=== PATIENT | female | born 1970 | race African-American/Black ===

== ENCOUNTER 2016-08-28 17:30 | Emergency (ER) | payer MEDICAID ==
[2016-08-28] MEDS ORDERED: PREDNISONE 20 MG TABLET PO ONE (20:23)
[2016-08-28] MEDS ORDERED: HYDROCODONE/ACETAMINOPHEN 5-325 MG TABLET PO ONE (20:23)
[2016-08-28] MEDS ORDERED: CYCLOBENZAPRINE HCL 10 MG TABLET PO ONE (20:23)
--- NOTE | 2016-08-28 20:26 | ER Document Report ---
ED General - General Chief Complaint: Groin Pain Stated Complaint: ABDOMINAL PAIN Mode of Arrival: Ambulatory Information source: Patient Notes: 45-year-old female presents with complaints of left groin pain and left shoulder pain. Patient notes that the groin pain has been ongoing now for 3 months, the shoulder pain has been ongoing for a month, patient notes that at her job she has to do heavy lifting all day long and has to be on her feet for 8 hours straight. Patient notes the pain resolves by nighttime worsens in the morning when she wakes up she feels very stiff. Patient denies any chest pain shortness breath difficulty breathing notes tingling sensation down the arm from overuse TRAVEL OUTSIDE OF THE [place] IN LAST 30 DAYS: No - HPI Onset: Other Onset/Duration: Persistent, Waxing and waning Quality of pain: Achy Severity: Mild Pain Level: 1 Associated symptoms: Body/muscle aches Exacerbated by: Movement Relieved by: Denies Similar symptoms previously: Yes Recently seen / treated by doctor: No - Related Data Allergies/Adverse Reactions: No Known Allergies Allergy (Verified 08/28/16 20:15) Past Medical History - Social History Smoking Status: Never Smoker Cigarette use (# per day): No Chew tobacco use (# tins/day): No Smoking Education Provided: No Frequency of alcohol use: None Drug Abuse: None Family History: Reviewed & Not Pertinent Patient has suicidal ideation: No Patient has homicidal ideation: No Renal/ Medical History: Denies: Hx Peritoneal Dialysis Past Surgical History: Reports: Hx Cholecystectomy - Immunizations Hx Diphtheria, Pertussis, Tetanus Vaccination: No Review of Systems - Review of Systems Notes: REVIEW OF SYSTEMS: CONSTITUTIONAL : Denies fever, chills, or sweats. Denies recent illness. EENT: Denies eye, ear, throat, or mouth pain or symptoms. Denies nasal or sinus congestion or discharge. Denies throat, tongue, or mouth swelling or difficulty swallowing. CARDIOVASCULAR: Denies chest pain. Denies palpitations or racing or irregular heart beat. Denies ankle edema. RESPIRATORY: Denies cough, cold, or chest congestion. Denies shortness of breath, difficulty breathing, or wheezing. GASTROINTESTINAL: Denies abdominal pain or distention. Denies nausea, vomiting , or diarrhea. Denies blood in vomitus, stools, or per rectum. Denies black, tarry stools. Denies constipation. GENITOURINARY: Denies difficulty urinating, painful urination, burning, frequency, blood in urine, or discharge. FEMALE GENITOURINARY: Denies vaginal bleeding, heavy or abnormal periods, irregular periods. Denies vaginal discharge or odor. MUSCULOSKELETAL: Admits to left inguinal pain left shoulder pain SKIN: Denies rash, lesions or sores. HEMATOLOGIC : Denies easy bruising or bleeding. LYMPHATIC: Denies swollen, enlarged glands. NEUROLOGICAL: Denies confusion or altered mental status. Denies passing out or loss of consciousness. Denies dizziness or lightheadedness. Denies headache. Denies weakness or paralysis or loss of use of either side. Denies problems with gait or speech. Denies sensory loss, numbness, or tingling. Denies seizures. PSYCHIATRIC: Denies anxiety or stress. Denies depression, suicidal ideation, or homicidal ideation. ALL OTHER SYSTEMS REVIEWED AND NEGATIVE. Dictation was performed using [employer] voice recognition software PHYSICAL EXAMINATION: GENERAL: Well-appearing, well-nourished and in no acute distress. HEAD: Atraumatic, normocephalic. EYES: Pupils equal round and reactive to light, extraocular movements intact, conjunctiva are normal. ENT: Nares patent, oropharynx clear without exudates. Moist mucous membranes. NECK: Normal range of motion, supple without lymphadenopathy LUNGS: Breath sounds clear to auscultation bilaterally and equal. No wheezes rales or rhonchi. HEART: Regular rate and rhythm without murmurs ABDOMEN: Soft, nontender, nondistended abdomen. No guarding, no rebound. No masses appreciated. Female : deferred Musculoskeletal: Normal range of motion, no pitting or edema. No cyanosis. Pain is reproducible with movement of his left shoulder and left leg NEUROLOGICAL: Cranial nerves grossly intact. Normal speech, normal gait. Normal sensory, motor exams PSYCH: Normal mood, normal affect. SKIN: Warm, Dry, normal turgor, no rashes or lesions noted. Physical Exam - Vital signs Vitals: Temp Pulse Resp BP Pulse Ox 98.6 F 83 17 137/106 H 99 08/28/16 18:05 08/28/16 18:05 08/28/16 18:05 08/28/16 18:05 08/28/16 18:05 Course - Re-evaluation Re-evalutation: 08/28/16 21:07 Patient's pain appears musculoskeletal in nature, given that she did not have any traumatic injuries and appears to be secondary to overuse of believe she is stable for discharge with pain control steroids. Patient has no history of diabetes. Patient will be given orthopedic follow-up as well for further evaluation and care After performing a Medical Screening Examination, I estimate there is LOW risk for INTRACRANIAL HEMORRHAGE, UNSTABLE SPINE FRACTURE, CENTRAL CORD SYNDROME, CAUDA EQUINA, THORACIC AORTIC DISSECTION, PNEUMOTHORAX, PERFORATED BOWEL, RUPTURED ABDOMINAL AORTIC ANEURYSM, ACUTE TENDON RUPTURE, COMPARTMENT SYNDROME, or OPEN FRACTURE, thus I consider the discharge disposition reasonable. Also, there is no evidence or peritonitis, sepsis, or toxicity. I have reevaluated this patient multiple times and no significant life threatening changes are noted. The patient and I have discussed the diagnosis and risks, and we agree with discharging home to follow-up with their primary doctor with the understanding that symptoms and presentations can change. We also discussed returning to the Emergency Department immediately if new or worsening symptoms occur. We have discussed the symptoms which are most concerning (e.g., bloody stool, fever, changing or worsening pain, vomiting) that necessitate immediate return. - Vital Signs Vital signs: Temp Pulse Resp BP Pulse Ox 98.7 F 73 16 187/83 H 98 08/28/16 20:25 08/28/16 20:25 08/28/16 20:25 08/28/16 20:25 08/28/16 20:25 Discharge - Discharge Clinical Impression: Groin strain Qualifiers: Encounter type: initial encounter Laterality: left Qualified Code(s): S76.212A - Strain of adductor muscle, fascia and tendon of left thigh, initial encounter Left shoulder pain Qualifiers: Chronicity: chronic Qualified Code(s): M25.512 - Pain in left shoulder Condition: Stable Disposition: HOME, SELF-CARE Instructions: Muscle Strain ([facility]), Inguinal Strain ([facility]) Additional Instructions: Please limit heavy lifting to no greater than 10 pounds Prescriptions: Cyclobenzaprine HCl [Flexeril 10 mg Tablet] 10 mg PO TIDP PRN #15 tab PRN Reason: Hydrocodone/Acetaminophen [[place] 5-325 mg Tablet] 1 tab PO Q6 #14 tablet Prednisone [Deltasone 20 mg Tablet] 3 tab PO DAILY 5 Days Referrals: ELMER CHANDRA MD [ACTIVE STAFF] - Follow up in 3-5 days
[2016-08-28 20:37] VITALS: BP 187/83
== END 2016-08-28 20:34 | disposition home or self-care (01) ==
LOC: ER 17:30
DX: S76.212A Strain of adductor muscle, fascia and tendon of left thigh, initial encounter (principal); X58.XXXA Exposure to other specified factors, initial encounter; G89.29 Other chronic pain; M25.512 Pain in left shoulder
CPT/HCPCS: 99283; J3490; J7512

== ENCOUNTER 2017-10-10 08:05 | Emergency (ER) | payer MEDICAID ==
--- NOTE | 2017-10-10 09:30 | ER Document Report ---
ED Neck/Back Problem - General Chief Complaint: Back Pain Stated Complaint: BACK/HIP/LEG PAIN Time Seen by Provider: 10/10/17 09:24 Notes: Patient is a 46-year-old female that states a long history of some lower back pain followed by a back pain specialist previously. 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 Patient states for the last few days she has had some pain to the right buttocks radiating down the right leg. She denies any fevers. She denies any foot drop. She denies any fevers or incontinence. She denies any new trauma. On review of systems the patient states she also has some right hand numbness when she wakes. She states it goes away when she "shakes it". She denies any discoloration or weakness of the hand. TRAVEL OUTSIDE OF THE [place] IN LAST 30 DAYS: No - HPI Patient complains to provider of: Pain Onset: Other - See above Where: Home Onset: Gradual Timing: Waxing and waning Quality of pain: Achy Severity: Mild Pain Level: 1 Recent injury: No Associated symptoms: Other - See above Exacerbated by: Movement of trunk Relieved by: Nothing Similar symptoms previously: Yes Recently seen / treated by doctor: No - Related Data Allergies/Adverse Reactions: No Known Allergies Allergy (Verified 10/10/17 08:06) Past Medical History - General Information source: Patient - Social History Smoking Status: Never Smoker Cigarette use (# per day): No Chew tobacco use (# tins/day): No Smoking Education Provided: No Frequency of alcohol use: None Drug Abuse: None Family History: Reviewed & Not Pertinent Patient has suicidal ideation: No Patient has homicidal ideation: No - Past Medical History Cardiac Medical History: Reports: Hx Hypercholesterolemia, Hx Hypertension Renal/ Medical History: Denies: Hx Peritoneal Dialysis Past Surgical History: Reports: Hx Cholecystectomy - Immunizations Hx Diphtheria, Pertussis, Tetanus Vaccination: No Review of Systems - Review of Systems Neurological/Psychological: Other - no slurred speech Physical Exam - Vital signs Vitals: Temp Pulse Resp BP Pulse Ox 98.8 F 65 18 150/107 H 99 10/10/17 08:08 10/10/17 08:08 10/10/17 08:08 10/10/17 08:08 10/10/17 08:08 Notes: Reviewed vital signs and nursing note as charted by RN. CONSTITUTIONAL: Alert and oriented and responds appropriately to questions. Well -appearing; well-nourished BACK: The back appears normal and is non-tender to palpation along the midline spine. No swelling or erythema to the midline spine EXT: Normal ROM in all joints; non-tender to palpation; no cyanosis, no effusions SKIN: Normal color for age and race; warm; dry; good turgor; capillary refill < 2 seconds; no acute lesions noted NEURO: 5 out of 5 bilateral lower extremity strength with sensation intact to light touch to all 4 extremities. Excellent right charter pilot strength with normal color. 2+ patellar reflexes bilaterally. PSYCH: The patient's mood and manner are appropriate. Grooming and personal hygiene are appropriate. Course - Re-evaluation Re-evalutation: 10/10/17 09:43 Given the above history and physical examination I do not believe that the patient requires any imaging or laboratory work at this time. Patient will be discharged home with strict return precautions and follow-up with the primary care provider. I will also provide a short course of Valium and orthopedic referral. - Vital Signs Vital signs: Temp Pulse Resp BP Pulse Ox 98.8 F 65 18 150/107 H 99 10/10/17 08:08 10/10/17 08:08 10/10/17 08:08 10/10/17 08:08 10/10/17 08:08 Discharge - Discharge Clinical Impression: Low back pain Qualifiers: Chronicity: acute Back pain laterality: right Sciatica presence: with sciatica Sciatica laterality: sciatica of right side Qualified Code(s): M54.41 - Lumbago with sciatica, right side Radiculopathy Qualifiers: Spinal region: lumbosacral Qualified Code(s): M54.17 - Radiculopathy, lumbosacral region Condition: Good Disposition: HOME, SELF-CARE Additional Instructions: Come back immediately with any increased pain, fevers, weakness, numbness, or any other acute problems. Please follow up with orthopaedics as we have discussed. Prescriptions: Diazepam [Valium 5 mg Tablet] 5 mg PO Q8 PRN #12 tablet PRN Reason: Pain Scale Of 3 Referrals: BECKY SCHULZ MD [ACTIVE STAFF] - Follow up as needed
[2017-10-10 10:01] VITALS: BP 123/90
== END 2017-10-10 10:02 | disposition home or self-care (01) ==
LOC: ER 08:05
DX: M54.41 Lumbago with sciatica, right side (principal); M54.17 Radiculopathy, lumbosacral region; M79.604 Pain in right leg; R20.0 Anesthesia of skin; I10 Essential (primary) hypertension
CPT/HCPCS: 99283